=== PATIENT | female | born 1990 ===

== ENCOUNTER 2017-12-10 12:17 | Inpatient (IN) | payer OTHER ==
[~2017-12-10] VITALS: Ht 152.4 cm; Wt 64.9 kg
[2017-12-21] MEDS ORDERED: PRENATAL FORMU1 EAC1 PO (11:19)
[2017-12-21] MEDS ORDERED: IRON325 MG PO (11:20)
== END 2017-12-23 12:39 | DRG 775 ==
LOC: LDR 12-21 09:52 → OB/GYN 12-21 09:52
PROC: 10E0XZZ Delivery of Products of Conception, External Approach (ICD-10-PCS; principal; 2017-12-21)
PROC: 0HQ9XZZ Repair Perineum Skin, External Approach (ICD-10-PCS; 2017-12-21)
PROC: 4A1HXCZ Monitoring of Products of Conception, Cardiac Rate, External Approach (ICD-10-PCS; 2017-12-21)
DX: O70.0 First degree perineal laceration during delivery (principal); O69.81X0 Labor and delivery complicated by cord around neck, without compression, not applicable or unspecified; Z3A.38 38 weeks gestation of pregnancy; Z37.0 Single live birth